=== PATIENT | male | born 1970 | race Two or more races ===

== ENCOUNTER 2024-12-01 17:22 | Emergency (ER) | payer SELFPAY ==
[~2024-12-01] VITALS: Ht 165.1 cm; Wt 60.7 kg
[2024-12-01 17:39] VITALS: BP 125/84; PULSE 100; RESP 17; O2SAT 96
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
[2024-12-01 18:56] LABS: Basophils # (auto) 0 10 ^3/uL (0-0.2); Basophils % (auto) 0.3 % (0.0-2.0); Eosinophils # (auto) 0.1 10 ^3/uL (0-0.8); Eosinophils % (auto) 0.8 % (0.0-7.0); Hemoglobin 16.2 g/dL (13.5-17.5); Lymphocytes # (auto) 1.6 10 ^3/uL (0.4-5.4); Lymphocytes % (auto) 11.5 % (10.0-50.0); Mean Corpuscular Hemoglobin 31.3 pg (28.0-32.0); Mean Corpuscular Hgb Conc. 34.5 g/dL (32.0-36.0); Mean Corpuscular Volume 90.5 fL (80.0-100.0); Monocytes # (auto) 1.6 10 ^3/uL (0-1.3); Monocytes % (auto) 11.6 % (0.0-12.0); Neutrophils # (auto) 10.4 10 ^3/uL (1.6-8.6); Neutrophils % (auto) 75.8 % (37.0-80.0); Platelet Count (auto) 257 10^3/uL (140-450); Red Blood Cells 5.19 10^6/uL (4.5-5.90); Red Cell Distribution Width 13.6 % (11.8-14.3); White Blood Cell 13.7 10^3/uL (4.4-10.8)
[2024-12-01 19:15] LABS: Albumin 4.3 g/dL (3.2-4.8); Alkaline Phosphatase 93 U/L (46-116); BUN/Creatinine Ratio 17.4 (10.0-20.0); Blood Urea Nitrogen 15 mg/dL (9-23); Calcium 9.5 mg/dL (8.7-10.4); Carbon Dioxide 29 mmol/L (20-31); Glucose 95 mg/dL (74-106); Total Protein 7.4 g/dL (5.7-8.2)
[2024-12-01 19:19] LABS: Alanine Aminotransferase 68 U/L (7-40); Aspartate Aminotransferase 58 U/L (13-40); Bilirubin, Total 1.3 mg/dL (0.2-1.0)
[2024-12-01 19:36] LABS: Anion Gap 7 (5-15); Chloride 100 mmol/L (98-107); Potassium 4.4 mmol/L (3.5-5.1); Sodium 136 mmol/L (136-145)
--- NOTE | 2024-12-01 19:40 | DVH ---
EXAM: XY CHEST PORTABLE TECHNIQUE: Single frontal chest radiograph CLINICAL HISTORY: FEVER, RUNNY NOSE COMPARISON: None Findings/Impression: Frontal chest radiograph demonstrates no acute osseous or superficial soft tissue abnormalities. The trachea is midline. The cardiac silhouette and mediastinum are within normal limits. Multifocal airspace opacities in the bilateral mid to lower lung bond. No pneumothorax or pleural effusions.
[2024-12-01 19:51] LABS: COVID19 ANTIGEN SOFIA FIA NEGATIVE (NEGATIVE); Rapid Influenza A Negative (Negative); Rapid Influenza B Negative (Negative)
[2024-12-01] MEDS ORDERED: PIPERACILLIN-TAZOB 3.375GM 100 ML IV ONE (20:45)
[2024-12-01] MEDS ORDERED: cefTRIAXone 1GM/50ML D5W 50 ML IV ONE (20:45)
== END 2024-12-01 20:30 | disposition left against medical advice (07) ==
LOC: ER 17:22
DX: J18.9 Pneumonia, unspecified organism (principal); Z20.822 Contact with and (suspected) exposure to COVID-19
CPT/HCPCS: 36415; 71045; 80053; 83605; 84484; 85025; 87426; 87804

== ENCOUNTER 2024-12-19 04:45 | Inpatient (IN) | payer OTHER ==
[~2024-12-19] VITALS: Ht 152.4 cm; Wt 60.3 kg
[2024-12-19] VITALS (7 sets, daily range): BP systolic 110–128; BP diastolic 61–75; PULSE 65–85; RESP 12–20; TEMP 97.4–98.6; O2SAT 94–99
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
[2024-12-19 07:15] LABS: Basophils # (auto) 0 10 ^3/uL (0-0.2); Basophils % (auto) 0.3 % (0.0-2.0); Eosinophils # (auto) 0 10 ^3/uL (0-0.8); Eosinophils % (auto) 0.2 % (0.0-7.0); Hematocrit 49.3 % (41.0-53.0); Hemoglobin 16.6 g/dL (13.5-17.5); Lymphocytes # (auto) 0.9 10 ^3/uL (0.4-5.4); Lymphocytes % (auto) 6.5 % (10.0-50.0); Mean Corpuscular Hemoglobin 30.4 pg (28.0-32.0); Mean Corpuscular Hgb Conc. 33.6 g/dL (32.0-36.0); Mean Corpuscular Volume 90.4 fL (80.0-100.0); Monocytes # (auto) 0.7 10 ^3/uL (0-1.3); Monocytes % (auto) 5.2 % (0.0-12.0); Neutrophils # (auto) 12.3 10 ^3/uL (1.6-8.6); Neutrophils % (auto) 87.8 % (37.0-80.0); Nucleated Red Blood Cells % 0.1 %; Platelet Count (auto) 362 10^3/uL (140-450); Red Blood Cells 5.46 10^6/uL (4.5-5.90); Red Cell Distribution Width 13.7 % (11.8-14.3)
--- NOTE | 2024-12-19 07:16 | DVH ---
CLINICAL INFORMATION: Abdominal pain. TECHNIQUE: Axial CT images of the abdomen and pelvis were obtained without IV contrast. Coronal and s agittal reformatted images were obtained, reviewed, and stored. Evaluation of the parenchymal organs is limited without IV contrast. Evaluation of the bowel and mesentery is limited without oral contras t. All CT scans at this medical facility are performed using dose modulation techniques as appropriat e to a performed exam including the following: Automated exposure control was utilized; adjustment of the MA and/or KV according to patient size; and use of iterative reconstruction technique. CTDIvol = 5.4 mGy DLP = 248.02 mGy-cm COMPARISON: None FINDINGS: Lung bases: Atelectasis in the lung bases. Liver: Grossly unremarkable in its noncontrast enhanced appearance. No abnormal density or focal lesi on identified. Biliary: No calcified gallstones or biliary ductal dilatation. Spleen: Unremarkable. Pancreas: Grossly unremarkable in its noncontrast enhanced appearance. Adrenal glands: Unremarkable. No mass. Kidneys: No hydronephrosis. No renal or ureteral calculi. Aorta/Vascular: No aneurysm or significant calcification. Retroperitoneum: No mass or lymphadenopathy. Bowel/mesentery: Moderate to marked gastric distention with fluid and ingested material. Dilated flui d-filled small proximal small bowel loops with nondilated more distal small bowel loops suggesting sm all bowel obstruction, although a focal transition point is not visualized. Fecal material visualized in small bowel loops suggesting bowel stasis. Appendix is not visualized. There is moderate scattere d stool in the colon. Pelvic organs: Enlarged prostate with mild impression on the bladder base. Bladder: Unremarkable. No mass. Abdominal wall: No mass or hernia. Bones: No acute fracture or suspicious intraosseous lesion. IMPRESSION: 1. Findings consistent with small-bowel obstruction, although focal transition point not visualized. The transition point may be obscured by adjacent dilated small bowel loops. Correlate with clinical f indings. 2. Moderate to marked gastric distention with fluid and ingested material, likely secondary to the romo spected small bowel obstruction. 3. Additional findings as detailed above.
[2024-12-19] MEDS: DONNATAL 5ml ORAL Elix (BELLADONNA ALK-PHENOBARB) PO ONE (07:18)
[2024-12-19] MEDS: MAALOX PLUS or MAALOX 30 ML PO ONE (07:18)
[2024-12-19] MEDS: ONDANSETRON ODT 4 MG TAB PO ONE (07:18)
[2024-12-19] MEDS: SODIUM CHLORIDE 0.9% 1,000 ML IVB ONE (07:19)
[2024-12-19] MEDS: LIDOCAINE VISCOUS 2% 15ML UD PO ONE (07:28)
[2024-12-19 07:29] LABS: Alanine Aminotransferase 63 U/L (7-40); Albumin 4.5 g/dL (3.2-4.8); Alkaline Phosphatase 96 U/L (46-116); Anion Gap 12 (5-15); Aspartate Aminotransferase 44 U/L (13-40); BUN/Creatinine Ratio 16.9 (10.0-20.0); Blood Urea Nitrogen 14 mg/dL (9-23); Carbon Dioxide 27 mmol/L (20-31); Chloride 102 mmol/L (98-107); Glucose 126 mg/dL (74-106); Potassium 3.9 mmol/L (3.5-5.1); Sodium 141 mmol/L (136-145); Total Protein 7.9 g/dL (5.7-8.2)
[2024-12-19 07:33] LABS: Bilirubin, Total 1.5 mg/dL (0.2-1.0)
[2024-12-19] MEDS: MORPHINE SULFATE 4 MG/ML SYR/VIAL IV ONE (07:50)
[2024-12-19] MEDS: ONDANSETRON HCL 4 MG/2 ML VIAL IV ONE (07:51)
[2024-12-19] MEDS ORDERED: ACETAMINOPHEN 325 MG TAB PO PRN (09:45)
[2024-12-19 09:46] LABS: Urine Bacteria None Seen /hpf (None Seen)
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
[2024-12-19] MEDS: PIPERACILLIN-TAZOB 3.375GM 100 ML IV ONE (10:09)
[2024-12-19] MEDS: PANTOPRAZOLE 40 MG/10 ML VIAL INJ IV SCH (10:10)
[2024-12-19] MEDS: ONDANSETRON HCL 4 MG/2 ML VIAL IV PRN (10:11)
[2024-12-19 10:12] LABS: Urine Blood Negative /uL (Negative); Urine Clarity Clear (Clear); Urine Color Yellow (Yellow); Urine Mucus FEW (None Seen); Urine Protein, UAD TRACE (Negative); Urine Specific Gravity 1.025 (1.001-1.035); Urine Squamous Epithelial Cell None Seen /hpf (<5); Urine Urobilinogen 4 mg/dL (Negative); Urine WBC < 1 /HPF (0-3); Urine pH 6.5 (5.0-9.0)
[2024-12-19 10:19] LABS: Opiate Scree,Urine Pos (NEGATIVE)
[2024-12-19 10:24] LABS: Amphetamine Screen, Urine Pos (NEGATIVE); Barbiturate Scree,Urine Neg (NEGATIVE); Benzodiazephine Screen, Urine Neg (NEGATIVE); Cannabinoid Screen, Urine Neg (NEGATIVE); Cocaine Screen, Urine Neg (NEGATIVE); Phencyclidine Screen, Urine Neg (NEGATIVE)
[2024-12-19] MEDS: SODIUM CHLORIDE 0.9% 1,000 ML IV SCH (10:32)
[2024-12-19] MEDS: PIPERACILLIN-TAZOB 3.375GM 100 ML IV SCH (10:52)
--- NOTE | 2024-12-19 18:27 | DVHINCON2 ---
Date of service: Dec 19, 2024 Family History: Diabetes mellitus G8 FATHER, Allergies: Coded Allergies: NO KNOWN ALLERGIES (Unverified , 12/19/24) Home Meds No Active Prescriptions or Reported Meds Current Medications Current Medications Medications (Trade) Dose Ordered Sig/Avinash Route PRN Reason Start Time Stop Time Status Last Admin Piperacillin Sod/ Tazobactam Sod 100 ml @ 25 mls/hr Q8HR IV 12/19/24 09:45 12/19/24 15:32 Sodium Chloride 1,000 ml @ 120 mls/hr Q8H20M IV 12/19/24 09:45 12/19/24 10:32 Acetaminophen/ Hydrocodone Bitart ([place] 5/325MG Tab) 1 tab Q4HP PRN PO MODERATE PAIN (4-6 PAIN SCALE) 12/19/24 09:45 Ondansetron HCl (Zofran) 4 mg Q4HP PRN IV NAUSEA / VOMITING 12/19/24 09:45 12/19/24 10:11 Acetaminophen (Tylenol Tablet) 650 mg Q6HP PRN PO PAIN SCALE 1-3 OR TEMP>100.4 12/19/24 09:45 Morphine Sulfate 2 mg Q4HPRN PRN IV SEVERE PAIN (7-10 PAIN SCALE) 12/19/24 09:45 Pantoprazole Sodium (Protonix) 40 mg DAILY IV 12/19/24 10:00 12/19/24 10:10 Vital Signs Vital Signs Date Time Temp Pulse Resp B/P (MAP) Pulse Ox O2 Delivery O2 Flow Rate FiO2 12/19/24 17:00 98.6 75 17 110/61 (77) 94 98.6 12/19/24 11:49 Room Air* 0 21 Labs/Diagnostic Data Labs Test 12/19/24 10:20 12/19/24 09:00 12/19/24 07:03 Range/Units Lactic Acid Level 1.0 0.4-2.0 mmol/L Troponin I High Sensitivity 10 </=54 ng/L Urine Color Yellow Yellow Urine Clarity Clear Clear Urine pH 6.5 5.0-9.0 Urine Specific [place] 1.025 1.001-1.035 Urine Protein Trace H Negative Urine Ketones 2+ H Negative Urine Blood Negative Negative /uL Urine Nitrite Negative Negative Urine Bilirubin Negative Negative Urine Urobilinogen 4 H Negative mg/dL Urine Leukocyte Esterase Negative Negative /uL Urine RBC None seen 0 - 3 /hpf Urine Microscopic WBC < 1 0-3 /HPF Urine Squamous Epithelial Cells None seen <5 /hpf Urine Bacteria None seen None Seen /hpf Urine Mucus Few None Seen Urine Glucose Normal Normal mg/dL Urine Opiates Screen Pos NEGATIVE Urine Fentanyl Screen Neg NEGATIVE Urine Barbiturates Screen Neg NEGATIVE Urine Phencyclidine Screen Neg NEGATIVE Urine Amphetamines Screen Pos NEGATIVE Urine Benzodiazepines Screen Neg NEGATIVE Urine Cocaine Screen Neg NEGATIVE Urine Cannabinoids Screen Neg NEGATIVE White Blood Count 14.0 H 4.4-10.8 10^3/uL Red Blood Count 5.46 4.5-5.90 10^6/uL Hemoglobin 16.6 13.5-17.5 g/dL Hematocrit 49.3 41.0-53.0 % Mean Corpuscular Volume 90.4 80.0-100.0 fL Mean Corpuscular Hemoglobin 30.4 28.0-32.0 pg Mean Corpuscular Hemoglobin Concent 33.6 32.0-36.0 g/dL Red Cell Distribution Width 13.7 11.8-14.3 % Platelet Count 362 140-450 10^3/uL Mean Platelet Volume 7.5 6.9-10.8 fL Neutrophils (%) (Auto) 87.8 H 37.0-80.0 % Lymphocytes (%) (Auto) 6.5 L 10.0-50.0 % Monocytes (%) (Auto) 5.2 0.0-12.0 % Eosinophils (%) (Auto) 0.2 0.0-7.0 % Basophils (%) (Auto) 0.3 0.0-2.0 % Neutrophils # (Auto) 12.3 H 1.6-8.6 10 ^3/uL Lymphocytes # (Auto) 0.9 0.4-5.4 10 ^3/uL Monocytes # (Auto) 0.7 0-1.3 10 ^3/uL Eosinophils # (Auto) 0 0-0.8 10 ^3/uL Basophils # (Auto) 0 0-0.2 10 ^3/uL Nucleated Red Blood Cells 0.1 % Sodium Level 141 136-145 mmol/L Potassium Level 3.9 3.5-5.1 mmol/L Chloride Level 102 98-107 mmol/L Carbon Dioxide Level 27 20-31 mmol/L Anion Gap 12 5-15 Blood Urea Nitrogen 14 9-23 mg/dL Creatinine 0.83 0.700-1.30 mg/dL Glomerular Filtration Rate Calc 103 >90 mL/min BUN/Creatinine Ratio 16.9 10.0-20.0 Serum Glucose 126 H 74-106 mg/dL Calcium Level 10.0 8.7-10.4 mg/dL Total Bilirubin 1.5 H 0.2-1.0 mg/dL Aspartate Amino Transferase (AST) 44 H 13-40 U/L Alanine Aminotransferase (ALT) 63 H 7-40 U/L Alkaline Phosphatase 96 46-116 U/L Total Protein 7.9 5.7-8.2 g/dL Albumin 4.5 3.2-4.8 g/dL Assessment 332228 AFEBRILE VSS ABD SOFT MINIMALLY TENDER NO BM FLATUS + POSSIBLE RESOLVING SBO KEEP NPO CLOSE OBSERVATION CONSIDER GASTROGRAFIN STUDY Plan discussed with: Other LILIANA HIDALGO MD Dec 19, 2024 18:27
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
[2024-12-20 01:00] VITALS: BP 109/61; PULSE 65; RESP 12; TEMP 97.8; O2SAT 96
[2024-12-20 05:00] VITALS: BP 111/61; PULSE 64; RESP 12; TEMP 97.8; O2SAT 97
[2024-12-20 06:33] LABS: Basophils # (auto) 0 10 ^3/uL (0-0.2); Basophils % (auto) 0.5 % (0.0-2.0); Eosinophils # (auto) 0.3 10 ^3/uL (0-0.8); Eosinophils % (auto) 2.9 % (0.0-7.0); Hematocrit 42.9 % (41.0-53.0); Hemoglobin 14.1 g/dL (13.5-17.5); Lymphocytes # (auto) 2.1 10 ^3/uL (0.4-5.4); Lymphocytes % (auto) 22.5 % (10.0-50.0); Mean Corpuscular Hgb Conc. 32.8 g/dL (32.0-36.0); Mean Corpuscular Volume 94.5 fL (80.0-100.0); Monocytes # (auto) 1.1 10 ^3/uL (0-1.3); Monocytes % (auto) 11.5 % (0.0-12.0); Neutrophils # (auto) 5.8 10 ^3/uL (1.6-8.6); Neutrophils % (auto) 62.6 % (37.0-80.0); Nucleated Red Blood Cells % 0.1 %; Platelet Count (auto) 248 10^3/uL (140-450); Red Blood Cells 4.54 10^6/uL (4.5-5.90); Red Cell Distribution Width 13.9 % (11.8-14.3); White Blood Cell 9.2 10^3/uL (4.4-10.8)
[2024-12-20 06:53] LABS: Alanine Aminotransferase 39 U/L (7-40); Albumin 3.3 g/dL (3.2-4.8); Alkaline Phosphatase 65 U/L (46-116); Anion Gap 4 (5-15); Aspartate Aminotransferase 31 U/L (13-40); BUN/Creatinine Ratio 15.7 (10.0-20.0); Blood Urea Nitrogen 13 mg/dL (9-23); Carbon Dioxide 25 mmol/L (20-31); Glucose 77 mg/dL (74-106); Potassium 4.1 mmol/L (3.5-5.1); Sodium 139 mmol/L (136-145)
[2024-12-20 07:03] LABS: Bilirubin, Total 1.7 mg/dL (0.2-1.0); Calcium 8.4 mg/dL (8.7-10.4); Chloride 110 mmol/L (98-107); Total Protein 5.7 g/dL (5.7-8.2)
[2024-12-20 08:59] VITALS: BP 100/66; PULSE 73; RESP 19; TEMP 97.5; O2SAT 97
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
--- NOTE | 2024-12-20 14:08 | DVHPN2 ---
Progress Note Date Seen: Dec 20, 2024 Medical Necessity Reason Pt with a Central, PICC or Fol: No Objective vital signs Vital Sign Date Time Temp Pulse Resp B/P (MAP) Pulse Ox O2 Delivery O2 Flow Rate FiO2 12/20/24 08:59 97.5 73 19 100/66 (77) 97 97.5 12/20/24 08:00 Room Air* 0 21 Total Intake and Output 12/19/24 12/19/24 12/20/24 15:00 23:00 07:00 Intake Total 1100 ml 900 ml Output Total 0 ml Balance 1100 ml 900 ml medications Current Medications Medications Dose Ordered Sig/Avinash Route Start Time Stop Time Status Last Admin Dose Admin Piperacillin Sod/ Tazobactam Sod 100 ml @ 25 mls/hr Q8HR IV 12/19/24 09:45 12/20/24 06:17 25 MLS/HR Sodium Chloride 1,000 ml @ 120 mls/hr Q8H20M IV 12/19/24 09:45 12/20/24 10:45 120 MLS/HR Acetaminophen/ Hydrocodone Bitart 1 tab Q4HP PRN PO 12/19/24 09:45 Ondansetron HCl 4 mg Q4HP PRN IV 12/19/24 09:45 12/19/24 10:11 4 MG Acetaminophen 650 mg Q6HP PRN PO 12/19/24 09:45 Morphine Sulfate 2 mg Q4HPRN PRN IV 12/19/24 09:45 Pantoprazole Sodium 40 mg DAILY IV 12/19/24 10:00 12/20/24 09:54 40 MG laboratory and microbiology Laboratory Tests 12/20/24 05:25 Test 12/20/24 05:25 Range/Units Serum Glucose 77 74-106 mg/dL Problem List/Assessment/Plan Problem List/Assessment/Plan afebrile VSS ABD SOFT NON DISTENDED NON TENDER NO BM FLATUS + GASTROGRAFIN STUDY ORDERED NURSE AT BEDSIDE Plan discussed with: Patient LILIANA HIDALGO MD Dec 20, 2024 14:08
[2024-12-20] MEDS ORDERED: GASTROGRAFIN 120 ML SOL ONE (14:21)
[2024-12-20 17:00] VITALS: BP 117/74; PULSE 84; RESP 19; TEMP 98; O2SAT 90
[2024-12-20] MEDS: MORPHINE SULFATE INJ 2 MG/ml SYRG IV PRN (17:56)
[2024-12-20 21:00] VITALS: BP 123/75; PULSE 76; RESP 16; TEMP 98.2; O2SAT 98
[2024-12-20] MEDS: HYDROcodone-ACET 5/325MG TAB PO PRN (21:20)
--- NOTE | 2024-12-20 21:53 | DVH ---
Procedure: XY SMALL BOWEL SERIES-W GASTROGRA Reason for study/Clinical History: small bowel obstruction Comparison Study: None available at time of dictation. Technique: Single contrast small bowel series performed. FINDINGS/IMPRESSION: 120 mL Gastrografin Initial silk brusher view of the abdomen and pelvis appears demonstrates no acute process. Contrast is identified within the colon by 4 hours. This represents a mild prolongation. Normal is 3 hours. HS:Y
[2024-12-21 00:59] VITALS: BP 120/63; PULSE 72; RESP 12; TEMP 97.9; O2SAT 94
[2024-12-21 04:56] VITALS: BP 137/77; PULSE 70; RESP 16; TEMP 98.2; O2SAT 98
[2024-12-21] MEDS ORDERED: PANT40T PO (08:11)
[2024-12-21] MEDS ORDERED: ZOFR4T PO (08:11)
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
[2024-12-21 08:51] VITALS: BP 134/75; PULSE 69; RESP 19; TEMP 97.8; O2SAT 97
[2024-12-21 10:12] VITALS: TEMP 36.6
--- NOTE | 2024-12-21 10:42 | DVHPN2 ---
Progress Note Date Seen: Dec 21, 2024 Medical Necessity Reason Pt with a Central, PICC or Fol: No Objective vital signs Vital Sign Date Time Temp Pulse Resp B/P (MAP) Pulse Ox O2 Delivery O2 Flow Rate FiO2 12/21/24 10:12 36.6 12/21/24 08:51 69 19 134/75 (94) 97 12/20/24 20:00 Room Air* 0 21 Total Intake and Output 12/20/24 12/20/24 12/21/24 15:00 23:00 07:00 Intake Total 100 ml 0 ml 0 ml Balance 100 ml 0 ml 0 ml medications Current Medications Medications Dose Ordered Sig/Avinash Route Start Time Stop Time Status Last Admin Dose Admin Piperacillin Sod/ Tazobactam Sod 100 ml @ 25 mls/hr Q8HR IV 12/19/24 09:45 12/21/24 05:34 25 MLS/HR Sodium Chloride 1,000 ml @ 120 mls/hr Q8H20M IV 12/19/24 09:45 12/21/24 03:32 120 MLS/HR Acetaminophen/ Hydrocodone Bitart 1 tab Q4HP PRN PO 12/19/24 09:45 12/21/24 03:30 1 TAB Ondansetron HCl 4 mg Q4HP PRN IV 12/19/24 09:45 12/19/24 10:11 4 MG Acetaminophen 650 mg Q6HP PRN PO 12/19/24 09:45 Morphine Sulfate 2 mg Q4HPRN PRN IV 12/19/24 09:45 12/21/24 00:10 2 MG Pantoprazole Sodium 40 mg DAILY IV 12/19/24 10:00 12/21/24 09:26 40 MG laboratory and microbiology Laboratory Tests 12/20/24 05:25 Test 12/20/24 05:25 Range/Units Serum Glucose 77 74-106 mg/dL Problem List/Assessment/Plan Problem List/Assessment/Plan afebrile VSS ABD SOFT NON DISTENDED NON TENDER NO BM FLATUS + GASTROGRAFIN STUDY NEG FOR SBO ALLOW CLEAR LIQUIDS CLEARED FOR DISCHARGE NURSE AT BEDSIDE Plan discussed with: Patient My Orders My Orders Orders - LILIANA HIDALGO MD Procedure Category Date Status Time Small Bowel Series-W XY 12/20/24 Resulted Gastrogra 14:09 LILIANA HIDALGO MD Dec 21, 2024 10:42
== END 2024-12-21 13:30 | disposition home or self-care (01) | DRG 247 ==
LOC: ER 04:45 → OVERFLOW 09:38 → CENTRAL 11:44
DX: K56.609 Unspecified intestinal obstruction, unspecified as to partial versus complete obstruction (principal); K92.0 Hematemesis; D72.829 Elevated white blood cell count, unspecified; E80.6 Other disorders of bilirubin metabolism; F17.210 Nicotine dependence, cigarettes, uncomplicated; R74.01 Elevation of levels of liver transaminase levels; Z83.3 Family history of diabetes mellitus
CPT/HCPCS: 36415; 74176; 74250; 80053; 80307; 81001; 83605; 84484; 85025; 96361; 96374; 96375; G0378; J2405; J2470; J2543; Q0162